=== PATIENT | male | born 1950 | race Caucasian/White ===

== ENCOUNTER 2017-03-17 05:49 | Day surgery (SDC) | payer OTHER ==
[2017-03-14 16:09] VITALS: BMI 31.4
[2017-03-17] VITALS (8 sets, daily range): BP systolic 140–159; BP diastolic 68–85; PULSE 44–58; RESP 14–16; Ht 170.2 cm; Wt 88.6 kg
[~2017-03-17] VITALS: Ht 170.2 cm; Wt 88.6 kg
[2017-03-17] MEDS ORDERED: DOXA4TAB3 PO (06:57)
[2017-03-17] MEDS ORDERED: GABA300C16 PO (06:57)
[2017-03-17] MEDS ORDERED: FINA5TAB4 PO (06:57)
[2017-03-17] MEDS ORDERED: PANT40TA4 PO (06:57)
[2017-03-17] MEDS ORDERED: PROPOFOL 20 ML ONE (07:21)
[2017-03-17] MEDS ORDERED: ROCURONIUM 50 MG INJ ONE (07:21)
[2017-03-17] MEDS ORDERED: LIDOCAINE 2% (SDV) 5 ML INJ ONE (07:21)
[2017-03-17] MEDS ORDERED: CEFAZOLIN 1 GM INJ ONE (07:25)
--- NOTE | 2017-03-17 07:29 | RADRPT ---
PROCEDURE: XR Chest. CLINICAL INDICATION: Preoperative. TECHNIQUE: Single frontal view. COMPARISON: None. FINDINGS: The lungs are clear. The heart size is normal. There is no pleural effusion. There is no pneumothorax. There is a metal surgical device in the right humeral head. IMPRESSION: 1. Prior right shoulder surgery. 2. Otherwise normal chest radiograph. RPTAT: QQ .Garland Jacob MD, MD Date Time Electronically viewed and signed by .Garland Jacob MD, on 03/17/2017 07:29 .R/
[2017-03-17] MEDS ORDERED: FENTAnyl 50 MCG/ML VIAL IV PRN ×3 (08:00)
[2017-03-17] MEDS ORDERED: EPHEDrine SULFATE 50 MG/5 ML SYG IV PRN (08:00)
[2017-03-17] MEDS ORDERED: KETOROLAC 30 MG INJ IV PRN (08:00)
[2017-03-17] MEDS ORDERED: OXYCODONE/ACETAMINOPHEN (5/325) TAB PO PRN ×2 (08:00)
[2017-03-17] MEDS ORDERED: MEPERIDINE 25 MG INJ IV PRN (08:00)
[2017-03-17] MEDS ORDERED: METOCLOPRAMIDE 10 MG INJ IV PRN (08:00)
[2017-03-17] MEDS ORDERED: ONDANSETRON 4 MG INJ IV PRN (08:00)
[2017-03-17] MEDS ORDERED: hydrALAzine 20 MG INJ IV PRN (08:00)
[2017-03-17] MEDS ORDERED: LABETALOL HCL 20MG INJ IV PRN (08:00)
[2017-03-17] MEDS ORDERED: DIPHENHYDRAMINE 50 MG INJ IV PRN (08:00)
[2017-03-17] MEDS ORDERED: HYDROmorphONE (0.2 MG/ML) 10ML SYG IV PRN ×3 (08:00)
--- NOTE | 2017-03-17 08:25 | HPN ---
Date/Time of Note Date/Time of Note DATE: 03/17/17 TIME: 08:25 Interval H&P Admission Note Pt. seen H&P reviewed: No system changes OVIDIO LONG MD Mar 17, 2017 08:25
--- NOTE | 2017-03-17 08:28 | SIPON ---
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
[2017-03-17] MEDS ORDERED: MIDAZOLAM 1 MG/ML 2 ML INJ ONE (09:09)
[2017-03-17] MEDS ORDERED: LIDOCAINE 2%/EPI 30 ML INJ ONE (09:11)
[2017-03-17] MEDS ORDERED: BUPIVACAINE 0.25% (MPF) 30 ML INJ ONE (09:11)
--- NOTE | 2017-03-17 10:43 | OPR ---
DATE OF OPERATION: 03/17/2017 PREOPERATIVE DIAGNOSES: Status post distal ulnar fracture nonunion, painful nonunion/malunion right distal ulna, right. POSTOPERATIVE DIAGNOSES: Status post distal ulnar fracture nonunion, painful nonunion/malunion right distal ulna, right. OPERATION PERFORMED: Excision of nonunion, malunion distal ulna. SURGEON: Dr. Marti SPLICER HELPER: SHAKIR Cain ANESTHESIOLOGIST: Dr. Cruz ANESTHESIA TECHNIQUE: General anesthetic by the anesthesiologist, local anesthetic by the surgeon. SURGICAL PAUSE: I reexamined the patient in the preop holding area with the patient's present as witness, took a marking pen, I harley in the planned surgical incision, showed the planned surgical incision to the patient, confirmed the operative procedure and plan with the patient awake. INFORMED CONSENT: At the time I scheduled the operative procedure in the office we talked with the patient about the risks and hazards of surgery, mentioning OP mortality, wound infection, good results, bad result, potential complication, nerve injury. Everything we could think of. At the end of that conversation the patient sign a note. We have 1 note for everybody. Everybody' s conversation is different, everybody's note is exactly the same. DESCRIPTION OF PROCEDURE: The patient was taken to surgery. A hockey stick incision was made over the distal ulna, right, which was subperiosteally exposed. It was misshapened and malunited, but I think there was union of all the fragments. We excised the distal ulna. The extensor carpi ulnaris was displaced dorsally. We placed a piece of large heavy 2-0 PDO absorbable monofilament suture into the extensor carpi ulnaris and into the TFCC material. Both are pulled up snugly into the distal ulna, raw cancellous bone. The rest of the soft tissue over the ulna was briefed together [id number] to make it tight closure. The subcuticular suture was Vicryl and the skin with subcuticular Vicryl. Steri-Strips applied. All the suture material used is absorbable and will ultimately disappear. The knot in the PDS suture may be irritating for a few months until it melts away. No metal was used. No anchorage was used. All materials put in the wrist are absorbable. Placed a sugar tong like splint. The operative procedure was about 45 minutes. DISCHARGE MEDICATIONS: 1. Hydrocodone.. Acetaminophen. 3. Keflex. FOLLOWUP: Will be in a week. He will be put in a long arm cast for about a month and short arm cast for another 2 to 3 weeks, until everything scars down. Dictated By: OVIDIO GUZMAN/AKIN Conf#: [id number] DID#: [id number] MTDD
--- NOTE | 2017-03-17 10:43 | OPR ---
DATE OF OPERATION: 03/17/2017 PREOPERATIVE DIAGNOSES: Status post distal ulnar fracture nonunion, painful nonunion/malunion right distal ulna, right. POSTOPERATIVE DIAGNOSES: Status post distal ulnar fracture nonunion, painful nonunion/malunion right distal ulna, right. OPERATION PERFORMED: Excision of nonunion, malunion distal ulna. SURGEON: Dr. Marti INFO PRINT PRESS OPERATOR: SHAKIR Cain ANESTHESIOLOGIST: Dr. Cruz ANESTHESIA TECHNIQUE: General anesthetic by the anesthesiologist, local anesthetic by the surgeon. SURGICAL PAUSE: I reexamined the patient in the preop holding area with the patient's present as witness, took a marking pen, I harley in the planned surgical incision, showed the planned surgical incision to the patient, confirmed the operative procedure and plan with the patient awake. INFORMED CONSENT: At the time I scheduled the operative procedure in the office we talked with the patient about the risks and hazards of surgery, mentioning OP mortality, wound infection, good results, bad result, potential complication, nerve injury. Everything we could think of. At the end of that conversation the patient sign a note. We have 1 note for everybody. Everybody' s conversation is different, everybody's note is exactly the same. DESCRIPTION OF PROCEDURE: The patient was taken to surgery. A hockey stick incision was made over the distal ulna, right, which was subperiosteally exposed. It was misshapened and malunited, but I think there was union of all the fragments. We excised the distal ulna. The extensor carpi ulnaris was displaced dorsally. We placed a piece of large heavy 2-0 PDO absorbable monofilament suture into the extensor carpi ulnaris and into the TFCC material. Both are pulled up snugly into the distal ulna, raw cancellous bone. The rest of the soft tissue over the ulna was briefed together [id number] to make it tight closure. The subcuticular suture was Vicryl and the skin with subcuticular Vicryl. Steri-Strips applied. All the suture material used is absorbable and will ultimately disappear. The knot in the PDS suture may be irritating for a few months until it melts away. No metal was used. No anchorage was used. All materials put in the wrist are absorbable. Placed a sugar tong like splint. The operative procedure was about 45 minutes. DISCHARGE MEDICATIONS: 1. Hydrocodone.. Acetaminophen. 3. Keflex. FOLLOWUP: Will be in a week. He will be put in a long arm cast for about a month and short arm cast for another 2 to 3 weeks, until everything scars down. Dictated By: OVIDIO GUZMAN/AKIN Conf#: [id number] DID#: [id number] MTDD
--- NOTE | 2017-03-17 10:43 | OPR ---
DATE OF OPERATION: 03/17/2017 PREOPERATIVE DIAGNOSES: Status post distal ulnar fracture nonunion, painful nonunion/malunion right distal ulna, right. POSTOPERATIVE DIAGNOSES: Status post distal ulnar fracture nonunion, painful nonunion/malunion right distal ulna, right. OPERATION PERFORMED: Excision of nonunion, malunion distal ulna. SURGEON: Dr. Marti CAD DETAILER: SHAKIR Cain ANESTHESIOLOGIST: Dr. Cruz ANESTHESIA TECHNIQUE: General anesthetic by the anesthesiologist, local anesthetic by the surgeon. SURGICAL PAUSE: I reexamined the patient in the preop holding area with the patient's present as witness, took a marking pen, I harley in the planned surgical incision, showed the planned surgical incision to the patient, confirmed the operative procedure and plan with the patient awake. INFORMED CONSENT: At the time I scheduled the operative procedure in the office we talked with the patient about the risks and hazards of surgery, mentioning OP mortality, wound infection, good results, bad result, potential complication, nerve injury. Everything we could think of. At the end of that conversation the patient sign a note. We have 1 note for everybody. Everybody' s conversation is different, everybody's note is exactly the same. DESCRIPTION OF PROCEDURE: The patient was taken to surgery. A hockey stick incision was made over the distal ulna, right, which was subperiosteally exposed. It was misshapened and malunited, but I think there was union of all the fragments. We excised the distal ulna. The extensor carpi ulnaris was displaced dorsally. We placed a piece of large heavy 2-0 PDO absorbable monofilament suture into the extensor carpi ulnaris and into the TFCC material. Both are pulled up snugly into the distal ulna, raw cancellous bone. The rest of the soft tissue over the ulna was briefed together [id number] to make it tight closure. The subcuticular suture was Vicryl and the skin with subcuticular Vicryl. Steri-Strips applied. All the suture material used is absorbable and will ultimately disappear. The knot in the PDS suture may be irritating for a few months until it melts away. No metal was used. No anchorage was used. All materials put in the wrist are absorbable. Placed a sugar tong like splint. The operative procedure was about 45 minutes. DISCHARGE MEDICATIONS: 1. Hydrocodone.. Acetaminophen. 3. Keflex. FOLLOWUP: Will be in a week. He will be put in a long arm cast for about a month and short arm cast for another 2 to 3 weeks, until everything scars down. Dictated By: OVIDIO GUZMAN/AKIN Conf#: [id number] DID#: [id number] MTDD
== END 2017-03-17 11:58 | disposition home or self-care (01) ==
LOC: SDS 05:49 → EDSEX 07:30 → SDS 11:58
PROVIDERS: ATTEND Orthopaedic Surgery Hand Surgery
DX: S52.601A Unspecified fracture of lower end of right ulna, initial encounter for closed fracture (principal); I10 Essential (primary) hypertension; E66.9 Obesity, unspecified; X58.XXXA Exposure to other specified factors, initial encounter
CPT/HCPCS: 25400; 71010; 85025; 88304; 88311; C1713; J0690; J2175; J2250; J2405; J3010